=== PATIENT | male | born 1955 | race Caucasian/White ===

== ENCOUNTER 2016-09-05 15:12 | Emergency (ER) | payer MEDICAID, OTHER ==
[~2016-09-05] VITALS: Wt 89.0 kg
[~2016-09-05 15:12] MED LIST: GLIP5TAB13 PO
--- NOTE | 2016-09-05 17:15 | ERD ---
ER Documentation Chief Complaint Date/Time DATE: 09/05/16 TIME: 17:13 Chief Complaint LEFT ANKLE PAIN [facility] HPI This is a 61-year-old male who presents the emergency department today with his niece complaining of left leg pain after tripping and falling earlier today. Niece indicated that her uncle was walking his dog this morning when he fell on the sidewalk. Denies hitting his head or loss of consciousness. Denies any previous trauma. Denies any fevers or chills ROS All systems reviewed and are negative except as per history of present illness. Medications Home Meds Active Scripts Acetaminophen* (Tylophen*) 500 Mg Capsule, 1 CAP PO Q6H Y for PAIN AND OR ELEVATED TEMP, #30 CAP Prov:MARY RHODES PA-C 09/05/16 Naproxen* (Naprosyn*) 500 Mg Tablet, 500 MG PO BID Y for PAIN AND/OR INFLAMMATION, #30 TAB Prov:MARY RHODES PA-C 09/05/16 Tramadol HCl (Tramadol HCl) 50 Mg Tablet, 50 MG PO Q4 Y for PAIN, #20 TAB Prov:MARY RHODES PA-C 09/05/16 Reported Medications Glipizide* (Glipizide*) 5 Mg Tablet, 2.5 MG PO HS, TAB 03/16/14 Glipizide* (Glipizide*) 5 Mg Tablet, 5 MG PO AC BREAKFAST, TAB 03/16/14 Allergies Allergies: Coded Allergies: No Known Drug Allergies (Verified Allergy, Unknown, 03/15/14) PMhx/Soc Medical and Surgical Hx: pt denies Medical Hx, pt denies Surgical Hx Hx Alcohol Use: No Hx Substance Use: No Hx Tobacco Use: No Physical Exam Vitals Vital Signs Date Time Temp Pulse Resp B/P Pulse Ox O2 Delivery O2 Flow Rate FiO2 09/05/16 15:14 98.0 84 16 128/71 99 Physical Exam Const: No acute distress Head: Atraumatic Eyes: Normal Conjunctiva ENT: Normal External Ears, Nose and Mouth. Neck: Full range of motion..~ No meningismus. Resp: Clear to auscultation bilaterally Cardio: Regular rate and rhythm, no murmurs Abd: Soft, non tender, non distended. Normal bowel sounds Skin: No petechiae or rashes MSK: Left leg with tenderness palpation over femur, tibia, ankle, foot. No obvious deformity. Effusion over medial and lateral malleolus. Unable to assess range of motion of ankle secondary to pain. Full active range of motion at D. Pulses 2+. Distal neurovascularly intact. Neur: Awake and alert Psych: Normal Mood and Affect Results 24 hrs Current Medications Medications (Trade) Dose Ordered Sig/Arthur Route PRN Reason Start Time Stop Time Status Last Admin Dose Admin Acetaminophen/ Hydrocodone Bitart ([place] (5/325)) 1 tab ONCE ONCE PO 09/05/16 17:30 09/05/16 17:31 DC 09/05/16 17:21 DIAGNOSTIC IMAGING REPORT Patient: APRYL HOPSON : 1955 Age: 61 Sex: M MR #: [id number] DOS: 09/05/16 0000 Ordering MD: MARY RHODES PA-C Location: [facility] Room/Bed: PROCEDURE: XR Left Ankle. CLINICAL INDICATION: Trauma with pain after a fall. TECHNIQUE: AP, oblique and lateral views of the left ankle were performed. COMPARISON: None. FINDINGS: There is soft tissue swelling over the lateral malleolus. There are degenerative spurs off the ventral inferior articular surface of the distal tibia. No acute fracture is noted. The ankle mortise is normal. IMPRESSION: 1. There is soft tissue swelling over the lateral malleolus. 2. Osteoarthritis of the left ankle. 3. No acute fracture. RPTAT:AAJJ Physician Rebecca Date Time Electronically viewed and signed by Wander Peguero Physician on 09/05/2016 17:15 JM/ CC: MARY RHODES PA-C DIAGNOSTIC IMAGING REPORT Patient: APRYL HOPSON : 1955 Age: 61 Sex: M MR #: [id number] DOS: 09/05/16 0000 Ordering MD: MARY RHODES PA-C Location: [facility] Room/Bed: PROCEDURE: Left femur x-ray CLINICAL INDICATION: Trauma and pain TECHNIQUE: AP and lateral views of the femur were obtained. COMPARISON: None FINDINGS: Note that the most distal aspect of the femur and knee are not imaged. There is no evidence acute fracture or focal bony blastic or lytic lesions involving the left femur visualized. The left hip joint appears unremarkable without dislocation. The soft tissues are unremarkable. IMPRESSION: No evidence of fracture or dislocation on this limited study as described above. RPTAT:AAJJ Physician Melita Date Time Electronically viewed and signed by Physician Melita on 09/05/2016 17:21 BM/ CC: MARY RHODES PA-C DIAGNOSTIC IMAGING REPORT Patient: APRYL HOPSON : 1955 Age: 61 Sex: M MR #: [id number] DOS: 09/05/16 0000 Ordering MD: MARY RHODES PA-C Location: [facility] Room/Bed: PROCEDURE: XR Left Foot. CLINICAL INDICATION: Pain and trauma TECHNIQUE: AP, lateral and oblique views of the left foot was obtained. COMPARISON: None. FINDINGS: There is no evidence of acute fractures or dislocations. The bony mineralization is normal. No focal bony blastic or lytic lesions. There is no evidence of erosions. There is atherosclerotic vascular disease present. The soft tissues are otherwise unremarkable. IMPRESSION: 1. No evidence acute fractures dislocations or erosions. 2. Atherosclerotic vascular disease. RPTAT:AAJJ Physician Melita Date Time Electronically viewed and signed by Physician Melita on 09/05/2016 17:20 BM/ CC: MARY RHODES PA-C DIAGNOSTIC IMAGING REPORT Patient: APRYL HOPSON : 1955 Age: 61 Sex: M MR #: [id number] DOS: 09/05/16 0000 Ordering MD: MARY RHODES PA-C Location: [facility] Room/Bed: PROCEDURE: Left leg series CLINICAL INDICATION: Trauma and pain TECHNIQUE: AP, lateral and oblique views of the right tibia and fibula were obtained. COMPARISON: No prior studies are available for comparison. FINDINGS: There is soft tissue swelling along the lateral left ankle. There is no evidence of acute fractures or dislocations. The bony mineralization is normal. No focal bony blastic or lytic lesions. No evidence of a left knee joint effusion. There is a 3 mm linear area of increased density in the soft tissues along the lateral posterior proximal left leg which may represent a focal area of calcification no a tiny foreign body cannot be excluded. Recommend confirmation. IMPRESSION: 1. 3 mm a elongated radiodensity involving the soft tissues along the posterior lateral left proximal leg may represent a tiny soft tissue calcification versus foreign body. Recommend confirmation. 2. Notes acute fractures dislocations or joint effusion. 3. Soft tissue swelling along the lateral left ankle. RPTAT:AAJJ Physician Melita Date Time Electronically viewed and signed by Physician Melita on 09/05/2016 17:23 BM/ CC: MARY RHODES PA-C Procedures/MDM This is a 61-year-old male who presents the emergency department today complaining of left leg pain after sustaining a mechanical fall while walking his dog earlier today. It was a little bit difficult to get patient's proper history and location of pain as patient is very hard of hearing. However given that there was trauma and patient did have effusion over his left ankle did obtain images of the patient's left leg Per the radiology report images of the left femur show no evidence of fracture dislocation. There is no bony blastic or lytic lesions involving the left femur. Left hip joint appears unremarkable without dislocation. Soft tissues are unremarkable. Most distal aspect of femur and knee are not imaged Images of the left tibia fibula shows a 3 mm elongated radiodensity involving the soft tissues along the posterior lateral left proximal leg which may represent a tiny soft tissue calcification versus foreign body. There is no focal bony blastic or lytic lesions. There is no evidence of a joint effusion. There is soft tissue swelling along the lateral left ankle Images of the left ankle show soft tissue swelling over the lateral malleolus. There is osteoarthritis of the left ankle there is no acute fracture. Ankle mortise is normal. Images of the left foot show no evidence of acute fracture dislocation or erosions. There is atherosclerotic vascular disease present. Soft tissues are otherwise unremarkable. Patient symptoms at this time is consistent with strain versus sprain versus contusion secondary to mechanical fall. I have explained all the results to the patient and his niece Patient symptoms at this time is consistent with sprain versus strain versus contusion. Patient was given an [employer] wrap as well as crutches to help ambulate. He was given [place] here in the emergency department. I will give him a prescription for a short course of Tramadol for home as well as Naprosyn and Tylenol At this time the patient is stable for discharge and outpatient management. Patient should follow up with their PCP in the next 1-2 days. They may return to the emergency department sooner for any persistent or worsening of symptoms. Patient and niece understood and agreed with the plan. Departure Diagnosis: Primary Impression: Leg injury Encounter type: initial encounter Laterality: left Qualified Code: S89.92XA - Leg injury, left, initial encounter Additional Impression: Fall Encounter type: initial encounter Qualified Code: W19.XXXA - Fall, initial encounter Condition: MARY Serrato PA-C Sep 05, 2016 17:15
--- NOTE | 2016-09-05 17:16 | RADRPT ---
PROCEDURE: XR Left Ankle. CLINICAL INDICATION: Trauma with pain after a fall. TECHNIQUE: AP, oblique and lateral views of the left ankle were performed. COMPARISON: None. FINDINGS: There is soft tissue swelling over the lateral malleolus. There are degenerative spurs o ff the ventral inferior articular surface of the distal tibia. No acute fracture is noted. The ankl e mortise is normal. IMPRESSION: 1. There is soft tissue swelling over the lateral malleolus. 2. Osteoarthritis of the left ankle. 3. No acute fracture. RPTAT:AAJJ Physician Rebecca Date Time Electronically viewed and signed by Physician Reebcca on 09/05/2016 17:15 /
--- NOTE | 2016-09-05 17:20 | RADRPT ---
PROCEDURE: XR Left Foot. CLINICAL INDICATION: Pain and trauma TECHNIQUE: AP, lateral and oblique views of the left foot was obtained. COMPARISON: None. FINDINGS: There is no evidence of acute fractures or dislocations. The bony mineralization is normal. No foc al bony blastic or lytic lesions. There is no evidence of erosions. There is atherosclerotic vascu lar disease present. The soft tissues are otherwise unremarkable. IMPRESSION: 1. No evidence acute fractures dislocations or erosions. 2. Atherosclerotic vascular disease. RPTAT:AAJJ Physician Melita Date Time Electronically viewed and signed by Darius Mitchell Physician on 09/05/2016 17:20 BM/
--- NOTE | 2016-09-05 17:21 | RADRPT ---
PROCEDURE: Left femur x-ray CLINICAL INDICATION: Trauma and pain TECHNIQUE: AP and lateral views of the femur were obtained. COMPARISON: None FINDINGS: Note that the most distal aspect of the femur and knee are not imaged. There is no evidence acute f racture or focal bony blastic or lytic lesions involving the left femur visualized. The left hip daphne int appears unremarkable without dislocation. The soft tissues are unremarkable. IMPRESSION: No evidence of fracture or dislocation on this limited study as described above. RPTAT:AAJJ Physician Melita Date Time Electronically viewed and signed by Darius Mitchell Physician on 09/05/2016 17:21 BM/
--- NOTE | 2016-09-05 17:23 | RADRPT ---
PROCEDURE: Left leg series CLINICAL INDICATION: Trauma and pain TECHNIQUE: AP, lateral and oblique views of the right tibia and fibula were obtained. COMPARISON: No prior studies are available for comparison. FINDINGS: There is soft tissue swelling along the lateral left ankle. There is no evidence of acute fractures or dislocations. The bony mineralization is normal. No focal bony blastic or lytic lesions. No e vidence of a left knee joint effusion. There is a 3 mm linear area of increased density in the soft tissues along the lateral posterior proximal left leg which may represent a focal area of calcifica tion no a tiny foreign body cannot be excluded. Recommend confirmation. IMPRESSION: 1. 3 mm a elongated radiodensity involving the soft tissues along the posterior lateral left proxim al leg may represent a tiny soft tissue calcification versus foreign body. Recommend confirmation. 2. Notes acute fractures dislocations or joint effusion. 3. Soft tissue swelling along the lateral left ankle. RPTAT:AAJJ Physician Melita Date Time Electronically viewed and signed by Physician Melita on 09/05/2016 17:23 /
[2016-09-05] MEDS ORDERED: HYDROCODONE/APAP (5/325) TAB PO ONE (17:30)
[2016-09-05] MEDS ORDERED: ACET500C5 PO (17:41)
[2016-09-05] MEDS ORDERED: NAPR-260 PO (17:41)
[2016-09-05] MEDS ORDERED: TRAM50TA2 PO (17:41)
[2016-09-05 17:52] VITALS: BP 132/76; PULSE 76; RESP 16
== END 2016-09-05 17:53 | disposition home or self-care (01) ==
LOC: FTE 15:12
DX: S89.92XA Unspecified injury of left lower leg, initial encounter (principal); E11.9 Type 2 diabetes mellitus without complications; W01.0XXA Fall on same level from slipping, tripping and stumbling without subsequent striking against object, initial encounter; Y92.480 Sidewalk as the place of occurrence of the external cause; Z79.84 Long term (current) use of oral hypoglycemic drugs
CPT/HCPCS: 73550; 73590; 73610; 73630; Z7502; Z7610